=== PATIENT | female | born 1945 | race American Indian/Alaskan Native ===

== ENCOUNTER 2020-11-11 05:52 | Day surgery (SDC) | payer MEDICARE, OTHER ==
[~2020-11-11 05:52] MED LIST: HEPARIN 10,000 UNITS/10 ML VIAL IV ONE; SODIUM CHLORIDE 0.9% 250 ML IVPB IV ONE; SODIUM CHLORIDE 0.9% 500 ML IVPB IV ONE; SODIUM CHLORIDE 0.9% IRR 1,500 ML BOTTLE IR ONE; SODIUM CHLORIDE 0.9% P/F 10 ML VIAL IV ONE; rifAMPin 600 MG VIAL IV ONE
[2020-11-11] MEDS ORDERED: SODIUM CHLORIDE 0.9% 1000 ML 1,000 ML IV SCH (06:00)
[2020-11-11] MEDS ORDERED: fentaNYL 100 MCG/2 ML INJ IV PRN (06:00)
--- NOTE | 2020-11-11 07:09 | Anesthesia Consultation ---
Anesthesia Consult and Med Hx Date of service: 11/11/20 - Airway Anesthetic Teeth Evaluation: Dentures (removed. 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
--- NOTE | 2020-11-11 07:10 | Anesthesia Day of Surgery ---
Anesthesia Day of Surgery - Day of Surgery Patient Examined: Yes Patient H&P Reviewed: Yes Patient is NPO: Yes
[2020-11-11] MEDS ORDERED: HEPARIN 10,000 UNITS/10 ML VIAL ONE (07:22)
[2020-11-11] MEDS ORDERED: BUPIVACAINE/PF (0.5%) 5 MG/1 ML 30 ML VIAL INFILTRATI ONE (07:22)
[2020-11-11] MEDS ORDERED: LIDOCAINE (1%) 10 MG/1 ML VIAL 20 ML MDV ONE ×2 (07:22→07:30)
[2020-11-11] MEDS ORDERED: SODIUM CHLORIDE 0.9% 500 ML 500 ML ONE (07:23)
[2020-11-11] MEDS ORDERED: rifAMPin 600 MG VIAL ONE (07:23)
[2020-11-11] MEDS ORDERED: SODIUM CHLORIDE 0.9% 250ML 250 ML ONE (07:23)
[2020-11-11 07:28] LABS: Calcium 9.6 mg/dL (8.4-10.2)
[2020-11-11] MEDS ORDERED: BUPIVACAINE/PF (0.25%) 2.5 MG/ML 30 ML VIAL INFILTRATI ONE (07:30)
[2020-11-11] MEDS ORDERED: SODIUM CHLORIDE P/F VIAL 10 ML 10 ML ONE (07:33)
[2020-11-11] MEDS ORDERED: propofoL 200 MG/20 ML VIAL IV ONE (07:38)
[2020-11-11] MEDS ORDERED: LIDOCAINE PF 100 MG/5 ML (CARDIAC SYRINGE) IV ONE (07:38)
[2020-11-11] MEDS ORDERED: MIDAZOLAM 2 MG/2 ML INJ ONE (08:30)
[2020-11-11] MEDS ORDERED: HEPARIN 10,000 UNITS/10 ML VIAL IV ONE (09:05)
[2020-11-11] MEDS ORDERED: SODIUM CHLORIDE 0.9% 500 ML IVPB IV ONE (09:05)
[2020-11-11] MEDS ORDERED: SODIUM CHLORIDE 0.9% IRR 1,500 ML BOTTLE IR ONE (09:05)
[2020-11-11] MEDS ORDERED: SODIUM CHLORIDE 0.9% 250 ML IVPB IV ONE (09:05)
[2020-11-11] MEDS ORDERED: SODIUM CHLORIDE 0.9% P/F 10 ML VIAL IV ONE (09:05)
--- NOTE | 2020-11-11 10:31 | Short Stay Summary ---
Short Stay Documentation Date of service: 11/11/20 Narrative H&P: See H&P - History H&P: obtained from office - Allergies and Medications Current Medications: Allergies Penicillins Allergy (Verified 10/27/20 10:44) Unknown Home Medications Medication Instructions Recorded Confirmed Last Taken Type Ascorbic Acid [Vitamin C] 1,000 mg PO DAILY 10/27/20 10/27/20 Unknown History Atorvastatin [Lipitor Tab] 40 mg PO QHS 10/27/20 10/27/20 Unknown History Brimonidine/Timolol 0.2-0.5% 1 drops OP Q12H 10/27/20 10/27/20 Unknown History [Combigan 0.2-0.5%] Ergocalciferol(Vitamin D2)(Nf) 1,000 mg PO DAILY 10/27/20 10/27/20 Unknown History [Vitamin D (Nf)] Escitalopram [Lexapro] 10 mg PO DAILY 10/27/20 10/27/20 Unknown History Insulin Detemir [Levemir Flextouch] 5 unit SQ PRN PRN 10/27/20 10/27/20 Unknown History Lispro Insulin [HumaLOG] 3 unit SQ TIDWM 10/27/20 10/27/20 Unknown History Losartan [Cozaar] 100 mg PO QDAY 10/27/20 10/27/20 Unknown History Metoprolol [Lopressor] 25 mg PO DAILY 10/27/20 10/27/20 Unknown History Sevelamer Carbonate [Renvela] 800 mg PO TIDWM 10/27/20 10/27/20 Unknown History Vit B Comp No.3/Folic/C/Biotin 1 each PO DAILY 10/27/20 10/27/20 Unknown History [Maureen-Ethan Rx Tablet] donepeziL [Aricept] 5 mg PO DAILY 10/27/20 10/27/20 Unknown History Active Medications Fentanyl (Fentanyl 100 Mcg/2 Ml Inj) 100 mcg IV ONCE PRN PRN Reason: sedation for nerve block Stop: 11/11/20 21:00 Last Admin: 11/11/20 07:53 Dose: 100 mcg Documented by: Clindamycin HCl (Cleocin 900 Mg/50 Ml) 900 mg in 50 mls @ 100 mls/hr IV PREOP NR; Protocol Stop: 11/11/20 23:59 Sodium Chloride (Nacl 0.9% 1000 Ml) 1,000 mls @ 42 mls/hr IV DIRECT MATTIE Stop: 11/11/20 23:59 Last Admin: 11/11/20 07:10 Dose: 42 mls/hr Documented by: - Brief post op/procedure progress note Date of procedure: 11/11/20 Pre-op diagnosis: End-Stage Renal Disease Post-op diagnosis: same Procedure: Creation of Left Brachial Artery to Left Axillary Vein Arteriovenous Graft with 5 mm Bovine Artegraft Anesthesia: MAC, regional Surgeon: RAMESH PERSON Estimated blood loss: minimal Pathology: none Condition: stable - Disposition Condition at discharge: Good Disposition: 01 HOME / SELF CARE / HOMELESS Short Stay Discharge Plan Activity: other (No heavy lifting with left arm for 2 weeks.) Wound: open to air, keep clean and dry, other (Okay to wash the left arm wounds with soap and water but do not soak in water for 2 weeks.) Follow up with: RAMESH PERSON MD [Staff Physician] - 14 Days Prescriptions: HYDROcodone/APAP 5-325 [[place] 5/325] 1 each PO Q4HR PRN #30 tablet PRN Reason: Pain
--- NOTE | 2020-11-11 10:33 | Operative Report ---
Operative Report Operative Report: Date of procedure: 11/11/2020 Pre-operative diagnosis: End-Stage Renal Disease Post-operative diagnosis: Same Procedure(s): 1. Creation of Left Brachial Artery to Axillary Vein AV Graft with 5 mm Bovine Graft Artergraft Surgeon: Marcos Connor MD Beef Trimmer: None Anesthesia: Regional/MAC EBL: Minimal Counts: Correct Complications: None Condition: Stable Findings: Successful Creation of Left Arm AV Graft with Palpable Thrill and Palpable Radial Pulse at the Completion of the Case. Specimen: None Indication: The patient is a 75-year-old female with a history of end-stage renal disease who is currently on hemodialysis through a right internal jugular permacath. She is in need of long-term dialysis access and requires creation of an arteriovenous graft for dialysis. She was given the risk, benefits, and alternative procedures and consented to the procedure. Description of Procedure: Prior to being transported to the operating room the patient had a regional block of the left arm performed. After the block was performed the patient was transported to the operating room and adequately sedated. The patient's left arm was then prepped and draped in normal sterile fashion. A longitudinal incision was made on the medial aspect of the arm just proximal to the antecubital crease and carried down to the brachial artery using sharp dissection. The brachial artery was dissected out circumferentially both proximally and distally and controlled with vessel loops. A second incision was created in longitudinal fashion on the medial aspect of the arm just distal to the axillary crease and carried down to the axillary vein using sharp dissection. Axillary vein was dissected out circumferentially and controlled with a vessel loop. I then used a Theresa-Wick tunneler to tunnel from the brachial artery incision to the axillary vein incision and then pulled an 5 mm bovine through the tunnel. I infused with heparinized saline to ensure that it was not twisted or kinked. I put the brachial artery vessel loops on tension controlling the flow and then created an arteriotomy using an 11 blade and Gonsalez scissors. I beveled the graft and created an end-to-side anastomosis using 6-0 Prolene running fashion. I clamped the graft just proximal to the anastomosis and then released the vessel loops restoring flow in the brachial artery. I placed quick clot in incision to achieve hemostasis. I cut the proximal end of the graft to the appropriate length and beveled the graft in preparation for a venous anastomosis. I controlled the axillary vein a Satinsky clamp and created a venotomy using an 11 blade and Gonsalez scissors. I created an end to side anastomosis using a 6-0 Prolene in running fashion. Prior to completing the anastomosis I flushed the graft to ensure there was no thrombus and then completed the anastamosis. I released all clamps allowing flow into the AV graft which had an excellent thrill. I packed the wound with quick clot to achieve hemostasis. I closed both wounds in 2 layers using 3-0 Vicryl in running fashion in the deep dermal layer and 4-0 Monocryl in running fashion the subcuticular layer. I dressed both wounds with Dermabond. The patient tolerated the procedure well all sponge, needle, and instrument counts were correct. The patient was taken to recovery in stable condition.
--- NOTE | 2020-11-11 12:03 | Post Anesthesia Evaluation ---
- Post Anesthesia Evaluation Patient Participated: Yes Airway Patent: Yes Stable Respiratory Function: Yes Nausea/Vomiting: No Temp > 96.8F: Yes Pain Manageable: Yes Adequeate Hydration: Yes Anesthesia Complications: No Block Receding Appropriately: Yes (sling provided)
[2020-11-11 19:04] VITALS: BP 145/77
== END 2020-11-11 05:53 | disposition home or self-care (01) ==
LOC: OR 05:52
PROVIDERS: ATTEND Surgery Vascular Surgery
DX: I12.0 Hypertensive chronic kidney disease with stage 5 chronic kidney disease or end stage renal disease (principal); N18.6 End stage renal disease; E78.00 Pure hypercholesterolemia, unspecified; K21.9 Gastro-esophageal reflux disease without esophagitis; Z87.891 Personal history of nicotine dependence; Z79.899 Other long term (current) drug therapy; Z98.890 Other specified postprocedural states
CPT/HCPCS: 36415; 36830; 80048; 82962; C1768; J1644; J2001; J2250; J2704; J3010; J3490; J7030; J7040; J7050

== ENCOUNTER 2020-11-28 06:34 | Day surgery (SDC) | payer MEDICARE, OTHER ==
[2020-11-28] MEDS ORDERED: HEPARIN/NS 5000 UNIT/500ML 500 ML IR ONE ×2 (07:15→07:53)
[2020-11-28] MEDS ORDERED: VERAPAMIL 5 MG/2 ML INJ ONE (07:16)
[2020-11-28] MEDS ORDERED: LIDOCAINE (2%) 20 MG/1 ML VIAL 20 ML MDV INFILTRATI ONE (07:53)
[2020-11-28] MEDS ORDERED: fentaNYL 100 MCG/2 ML INJ ONE (07:53)
[2020-11-28] MEDS ORDERED: MIDAZOLAM 2 MG/2 ML INJ ONE (07:53)
[2020-11-28] MEDS ORDERED: SODIUM CHLORIDE 0.9% 250ML 250 ML ONE (07:54)
[2020-11-28] MEDS ORDERED: SODIUM CHLORIDE 0.9% 500 ML 500 ML IV SCH (08:00)
[2020-11-28 08:21] LABS: Calcium 9.5 mg/dL (8.4-10.2)
[2020-11-28] MEDS ORDERED: CLINDAMYCIN 600 MG/50 mL 600 MG/50 ML BAG IV ONE (08:44)
[2020-11-28] MEDS: fentaNYL 100 MCG/2 ML INJ ONE ×2 (08:51→09:03)
[2020-11-28] MEDS: LIDOCAINE (2%) 20 MG/1 ML VIAL 20 ML MDV INFILTRATI ONE ×5 (08:52→09:41)
[2020-11-28] MEDS: MIDAZOLAM 2 MG/2 ML INJ ONE ×2 (08:52→09:03)
[2020-11-28] MEDS ORDERED: CLINDAMYCIN 600 MG/50 mL 600 MG/50 ML BAG IV NR (09:00)
[2020-11-28] MEDS: HEPARIN 10,000 UNITS/10 ML VIAL ONE ×2 (09:13→10:00)
--- NOTE | 2020-11-28 10:02 | Short Stay Summary ---
Short Stay Documentation Date of service: 11/28/20 Narrative H&P: See short stay form - Allergies and Medications Current Medications: Allergies Penicillins Allergy (Verified 10/27/20 10:44) Unknown Home Medications Medication Instructions Recorded Confirmed Last Taken Type Ascorbic Acid [Vitamin C] 1,000 mg PO DAILY 10/27/20 11/28/20 11/27/20 History 1000 mg Atorvastatin [Lipitor] 40 mg PO QHS 10/27/20 11/28/20 11/26/20 History 40 mg Ergocalciferol(Vitamin D2)(Nf) 1,000 mg PO DAILY 10/27/20 11/28/20 11/27/20 History [Vitamin D (Nf)] 1000 mg Escitalopram [Lexapro] 10 mg PO DAILY 10/27/20 11/28/20 11/27/20 History 10 mg Insulin Detemir [Levemir Flextouch] 5 unit SQ PRN PRN 10/27/20 11/28/20 11/26/20 History 5 units Lispro Insulin [HumaLOG] 3 unit SQ TIDWM 10/27/20 11/28/20 11/21/20 History 3 units Losartan [Cozaar] 100 mg PO QDAY 10/27/20 11/28/20 11/27/20 History 100 mg Metoprolol [Lopressor TAB] 25 mg PO DAILY 10/27/20 11/28/20 11/28/20 05:30 History 25 mg Sevelamer Carbonate [Renvela] 800 mg PO TIDWM 10/27/20 11/28/20 11/27/20 History 800 mg Vit B Comp No.3/Folic/C/Biotin 1 each PO DAILY 10/27/20 11/28/20 11/27/20 History [Maureen-Ethan Rx Tablet] 1 tab donepeziL [Aricept] 5 mg PO DAILY 10/27/20 11/28/20 11/27/20 History 5 mg Active Medications Sodium Chloride (Nacl 0.9% 500 Ml) 500 mls @ 50 mls/hr IV DIRECT MATTIE - Brief post op/procedure progress note Date of procedure: 11/28/20 Pre-op diagnosis: Complications of Dialysis Access Post-op diagnosis: same Procedure: 1. Access Left Arm AV Graft with 7 Indian Sheath Venous 2. Access Left Arm AV Graft with 6 Indian Sheath Arterial 3. Diagnostic Fistulogram with Central Venogram 4. Angioplasty and Stent of Left Arm AV Graft With 7 x 40 [place] Balloon and 7 x 5 cm Viabahn Stent Graft 5. Percutaneous Mechanical Thrombectomy of Left Arm AV Graft with Trerotola Device And 6 Indian MP Guide Catheter 6. Catheter in Left Brachial Artery 7. Diagnostic Left Upper Extremity Angiogram 8. Radiologic Supervision with Interpretation 9. Monitored Moderate Sedation (Total Anesthesia Time: 45 Minutes) Anesthesia: local, other (Monitored Moderate Sedation) Surgeon: RAMESH PERSON Estimated blood loss: minimal Pathology: none Condition: stable - Disposition Condition at discharge: Good Disposition: 01 HOME / SELF CARE / HOMELESS Short Stay Discharge Plan Wound: remove dressing (Remove dressings in 24 hours. Remove the sutures by pulling the longer of the 2 strings.) Follow up with: RAMESH PERSON MD [Staff Physician] - 7 Days
--- NOTE | 2020-11-28 10:22 | Operative Report ---
Operative Report Operative Report: Date of Procedure: 11/28/2020 Pre-operative Diagnosis: Complications of Dialysis Access Post-operative Diagnosis: Same Procedure(s): 1. Access Left Arm AV Graft with 7 Turkish Sheath Venous 2. Access Left Arm AV Graft with 6 Turkish Sheath Arterial 3. Diagnostic Fistulogram with Central Venogram 4. Angioplasty and Stent of Left Arm AV Graft With 7 x 40 [place] Balloon and 7 x 5 cm Viabahn Stent Graft 5. Percutaneous Mechanical Thrombectomy of Left Arm AV Graft with Trerotola Device And 6 Turkish MP Guide Catheter 6. Catheter in Left Brachial Artery 7. Diagnostic Left Upper Extremity Angiogram 8. Radiologic Supervision with Interpretation 9. Monitored Moderate Sedation (Total Anesthesia Time: 45 Minutes) Surgeon: Marcos Connor M.D. Embossed Or Impressed Lettering Painter: Estefani Anesthesia: Local/Monitored Moderate Sedation Total Anesthesia Time: 45 Minutes EBL: Minimal Counts: Correct Complications: None Condition: Stable Specimen: None Indication: The patient is a 75-year-old female with a history of end-stage renal disease who is currently on hemodialysis through a permacath. She had creation of a lef t arm AV graft approximately 2 weeks ago that is now thrombosed. She is in need of a diagnostic fistulogram with possible intervention. She was given the risk, benefits, and alternative procedures and consented to the procedure. Angiographic Findings: The diagnostic fistulogram revealed thrombus throughout the graft. There was approximately 85% stenosis of the venous anastomosis. The central venous system was patent without evidence of flow-limiting stenosis. The left upper extremity angiogram revealed that the brachial artery was patent without evidence of flow- limiting stenosis. There was no evidence of stenosis at the arterial anastomosis. The distal brachial artery was patent without evidence of flow- limiting stenosis or distal emboli. The proximal radial and ulnar artery were both patent without evidence of flow-limiting stenosis or distal emboli. After intervention the graft was patent with brisk flow of contrast and minimal residual thrombus. There was less than 10% residual stenosis of the venous anastomosis and no evidence of distal emboli at the completion of the case. Description of Procedure: The patient was brought to the Director Software Development and laid in supine position. After a timeout was performed the patient's left arm was prepped and draped in normal sterile fashion. Lidocaine was used to anesthetize the skin and soft tissue overlying the graft and the arterial inflow and a 21-gauge micropuncture needle was used access the graft towards the venous outflow. A 0.018 micropuncture wire was advanced to the graft and after removing the needle a 7 Turkish sheath was placed by Seldinger technique. A diagnostic fistulogram was performed the previously described findings. A vertebral catheter and 0.035 floppy Glidewire were used to traverse the stenosis and the catheter and wire were advanced into the central venous system. A central venogram was performed the previously described finding. At this point the patient was systemically heparinized with 3000 as of heparin IV. I advanced a 0.035 Bentson wire into the central venous system and performed angioplasty of the anastomosis with a 6 x 60 [place] Balloon with a result of approximately 60% residual stenosis. I continue to use the balloon to macerate the thrombus within the graft and then used the Trerotola device to further macerate the thrombus. I attempted to aspirate the thrombus the 7 Turkish sheath however this was unsuccessful secondary to the continued stenosis at the anastomosis. I advanced the 0.018 V18 Wire into the central venous system and then advanced a 7 x 5 cm Viabahn Stent Graft across the anastomosis and deployed it. I postdilated the stent graft with a 7 x 40 [place] Balloon with a result of less than 10% residual stenosis. I then used a 6 Turkish Multipurpose Guide Catheter and was able to aspirate thrombus from within the graft. The follow-up fistulogram revealed minimal residual thrombus within the graft. At this point I anesthetized the skin and soft tissue overlying the venous outflow of the graft and then accessed the graft using a 21-gauge micropuncture needle towards the arterial inflow. I advanced a 0.018 micropuncture wire into the graft and after removing the needle placed a 6 Turkish sheath by Seldinger technique. I advanced a Glidewire and vertebral catheter into the mid brachial artery performed a diagnostic angiogram with the previously described findings. I then used the Trerotola device to macerate the thrombus within the arterial inflow of the graft. I aspirated the thrombus through the 6 and 7 Turkish sheaths. After aspirating the thrombus I readvanced the vertebral catheter and Glidewire into the mid brachial artery and performed a final angiogram revealing brisk flow of contrast into the graft with minimal residual thrombus and less than 10% residual stenosis throughout the graft. There was no evidence of steal syndrome or evidence of distal emboli in the distal brachial artery or proximal radial ulnar arteries. At this point I removed the vertebral catheter and the use 2-0 Ethilon in slipknot fashion to close each entry site after removing these sheaths. Sterile dressings were then applied to the entry sites and the patient was transported to the recovery area in stable condition.
[2020-11-28] MEDS ORDERED: HYDROcodone/ACETAMINOPHEN 5-325 MG TAB PO PRN (10:30)
[2020-11-28 10:47] VITALS: BP 171/79
== END 2020-11-28 11:25 | disposition home or self-care (01) ==
LOC: CATHLABREC 06:34
PROVIDERS: ATTEND Surgery Vascular Surgery
DX: T82.868A Thrombosis due to vascular prosthetic devices, implants and grafts, initial encounter (principal); I12.0 Hypertensive chronic kidney disease with stage 5 chronic kidney disease or end stage renal disease; E11.22 Type 2 diabetes mellitus with diabetic chronic kidney disease; N18.6 End stage renal disease; Z99.2 Dependence on renal dialysis; E78.00 Pure hypercholesterolemia, unspecified; K21.9 Gastro-esophageal reflux disease without esophagitis; H40.9 Unspecified glaucoma; E11.319 Type 2 diabetes mellitus with unspecified diabetic retinopathy without macular edema; Z79.4 Long term (current) use of insulin; Z79.899 Other long term (current) drug therapy; Z88.0 Allergy status to penicillin; E89.0 Postprocedural hypothyroidism; Z96.652 Presence of left artificial knee joint; Z98.41 Cataract extraction status, right eye; Z98.42 Cataract extraction status, left eye; Z98.890 Other specified postprocedural states; Y83.8 Other surgical procedures as the cause of abnormal reaction of the patient, or of later complication, without mention of misadventure at the time of the procedure
CPT/HCPCS: 36415; 36906; 80048; 99156; 99157; C1725; C1751; C1757; C1769; C1874; C1894; J1644; J2250; J3010; J7050; Q9967